=== PATIENT | female | born 1960 | race Caucasian/White ===

== ENCOUNTER 2017-05-30 11:09 | Outpatient (CLI) | payer OTHER ==
[2017-05-30] MEDS: methylPREDNISolone INJ 125 MG/2 ML VIAL (J2930) IV (11:47)
[2017-05-30] MEDS: ACETAMINOPHEN TAB 650MG DOSE (2X325MG) PO (11:47)
[2017-05-30] MEDS: diphenhydrAMINE 25 MG CAP PO (11:47)
[2017-05-30] MEDS: OCRELIZUMAB 300 MG in NS 250 ML IV (12:19)
== END 2017-05-30 16:25 | disposition home or self-care (01) ==
LOC: M INFU 11:09
DX: G35 Multiple sclerosis (principal); Z79.899 Other long term (current) drug therapy
CPT/HCPCS: J2930

== ENCOUNTER → 2020-06-23 | Outpatient (REF) | payer OTHER ==
[~2020-06-23] MED LIST: AMPY10TA PO; DITR1TAB2 PO; GILE1CAP PO; VITA500045 PO; VITA50005 PO
== END ==
LOC: M SMT 12:54
PROVIDERS: ATTEND Urology
DX: R39.81 Functional urinary incontinence (principal)

== ENCOUNTER → 2020-10-24 | Outpatient (CLI) | payer OTHER ==
[~2020-10-24] MED LIST changes: +FUROSEMIDE 20MG/2ML VIAL (J1940) As Ordered ONE
--- NOTE | 2020-10-24 10:27 | REP ---
INDICATION: HYDRONEPHROSIS. COMPARISON: None. TECHNIQUE/RADIOTRACER AND DOSE: Following the intravenous administration of 8.6 mCi technetium 99 M Mag 3, multiple images are obtained of the kidneys for a period of 30 minutes. Lasix was administered intravenously, 20 mg, and further imaging performed. FINDINGS: There is a slightly greater degree of perfusion of the left kidney compared to the right. There is bilateral cortical uptake and excretion with no cortical defect identified. There is mild dilatation of the renal pelvis bilaterally. Split function is 59.6% on the left and 40.4% on the right. Time to peak is normal bilaterally. The T1/2 is 11.4 minutes on the left, upper limits of normal, and 12.7 minutes on the right, slightly elevated. Relatively normal renal function curves are noted. After the administration of Lasix residual activity in the renal pelvis bilaterally clears. There is moderate postvoid residual after voiding. IMPRESSION: Mild bilateral pelviectasis clears after Lasix administration. <Electronically signed by Francesco Hwang > 10/24/20 [id number]
== END ==
LOC: M RAD 08:28
PROVIDERS: ATTEND Specialist
DX: N13.30 Unspecified hydronephrosis (principal); R39.81 Functional urinary incontinence
CPT/HCPCS: 78708; A9562; J1940

== ENCOUNTER → 2020-11-09 | Outpatient (REF) | payer OTHER ==
[~2020-11-09] MED LIST changes: +BIOT1000 PO; +BRIM0.2S13; +CITRTAB18 PO; +CVS5000S2 SL; +D-101000; +D31000TA2 PO; +FOLI400T13 PO; -FUROSEMIDE 20MG/2ML VIAL (J1940) As Ordered ONE; +MAGN250T7 PO
[2020-11-09 14:03] LABS: APPEARANCE, URINE HAZY (CLEAR); BACTERIA, URINE AUTO 1+ (NEGATIVE); BILIRUBIN, URINE AUTO NEGATIVE (NEGATIVE); BLOOD, URINE BLOOD NEGATIVE (NEGATIVE); COLOR, URINE YELLOW (YELLOW); GLUCOSE, URINE (UA) AUTO NEGATIVE (NEGATIVE); KETONE, URINE AUTO NEGATIVE (NEGATIVE); LEUKOCYTE ESTERASE, URINE AUTO NEGATIVE (NEGATIVE); NITRITE, URINE AUTO POSITIVE (NEGATIVE); PROTEIN, URINE AUTO NEGATIVE (NEGATIVE); RBC, URINE AUTO 0 /HPF (0-3); SPECIFIC GRAVITY URINE AUTO 1.012 (1.002-1.035); SQUAMOUS EPITHELIAL CELL UR AU 0 /HPF (0-6); UROBILINOGEN, URINE AUTO 0.2 mg/dL (0.0-2.0); WBC, URINE AUTO 1 /HPF (0-3)
== END ==
LOC: M SMT 12:57
PROVIDERS: ATTEND Urology
DX: Z01.818 Encounter for other preprocedural examination (principal); R39.81 Functional urinary incontinence

== ENCOUNTER → 2020-11-10 | Outpatient (CLI) | payer OTHER | LOC: M LABSMTC 11:34 | PROVIDERS: ATTEND Anesthesiology | DX: Z01.812 Encounter for preprocedural laboratory examination (principal); Z11.52 Encounter for screening for COVID-19 ==

== ENCOUNTER 2020-11-15 09:42 | Day surgery (SDC) | payer OTHER ==
[~2020-11-15] VITALS: Ht 172.7 cm; Wt 141.1 kg
[~2020-11-15 09:42] MED LIST changes: +LIDOCAINE 1% MDV 20ML VIAL SQ PRN; +LR 1,000 ML IV ONE
[2020-11-15] MEDS ORDERED: CIPR100T4 PO (10:30)
[2020-11-15] MEDS ORDERED: dexameTHASONE 4 MG/ML 1ML VIAL (J1100 PER 1MG) As Ordered ONE (12:16)
[2020-11-15] MEDS ORDERED: ROCURONIUM BROMIDE 50 MG/5 ML VIAL As Ordered ONE (12:16)
[2020-11-15] MEDS ORDERED: MIDAZOLAM INJ 2MG/2ML VIAL (J2250 PER 1MG) As Ordered ONE (12:16)
[2020-11-15] MEDS ORDERED: propofoL 200 MG/20 ML VIAL As Ordered ONE (12:16)
[2020-11-15] MEDS ORDERED: fentaNYL 100 MCG/2 ML INJECTION (J3010) As Ordered ONE (12:16)
[2020-11-15] MEDS ORDERED: LIDOCAINE 2% 100MG/5ML SDV (FOR ANES.) As Ordered ONE (12:16)
[2020-11-15] MEDS ORDERED: ONDANSETRON 4MG/2ML VIAL As Ordered ONE (12:17)
[2020-11-15] MEDS ORDERED: CONRAY-60 60% 50ML VIAL (Q9961) As Ordered ONE (13:02)
[2020-11-15] MEDS ORDERED: LIDOCAINE 2% 5ML JELLY UROJET As Ordered ONE (13:18)
[2020-11-15] MEDS ORDERED: LIDOCAINE 1% MDV 50ML VIAL As Ordered ONE (13:18)
[2020-11-15] MEDS: ceFAZolin SOD 1 GM in D5W MINI-BAG PLUS 50 ML IV SCH ×4 (13:20→14:12)
[2020-11-15] MEDS ORDERED: SUGAMMADEX SODIUM 500 MG/5 ML VIAL (BRIDION) As Ordered ONE (13:40)
--- NOTE | 2020-11-15 13:59 | REP ---
INDICATION: POSSIBLE STENT PLACEMENT. COMPARISON: Nuclear scan 10/24/2020. TECHNIQUE: Single C-arm view abdomen and pelvis. FINDINGS: Contrast opacifies the left pelvocaliceal system, visualized portions demonstrate no definite filling defect in there is no overt hydronephrosis. The visualized left ureter demonstrates no filling defect or stricture. IMPRESSION: 9 seconds of fluoroscopy time is utilized. <Electronically signed by Francesco Hwang > 11/15/20 [id number]
--- NOTE | 2020-11-15 14:14 | ROOPDOC ---
[facility] Report Of Operation Report of Operation DATE OF PROCEDURE: 11/15/20 PREPROCEDURE DIAGNOSES: Mild left hydronephrosis, urinary urgency and urge incontinence with a neurogenic bladder secondary to multiple sclerosis, cystic changes in the bladder, and incomplete bladder emptying POSTPROCEDURE DIAGNOSES: Same PROCEDURE PERFORMED: Cystoscopy, left retrograde pyelogram, hydrodistention, multiple bladder biopsies and fulguration, urethral dilation SURGEON: Melissa Corcoran MD ANESTHESIA: General ESTIMATED BLOOD LOSS: Very minimal COMPLICATIONS: None FINDINGS: No abnormality seen on the left retrograde pyelogram. Total bladder capacity under anesthesia greater than 800 cc. Some hyperemia. Multiple small cystic blebs throughout the bladder. SPECIMENS REMOVED: Cystic blebs throughout the bladder PROCEDURE NOTE: The patient is a 60-year-old with multiple sclerosis found to have incomplete bladder emptying with elevated postvoid residuals, urinary urgency and urge incontinence secondary to a neurogenic bladder, and cystic changes throughout the bladder. After discussing all different options, alternatives, risk, benefits it was decided to bring the patient to the operating room for urethral dilation, left retrograde pyelogram, bladder biopsies, fulguration, and a hydrodistention. All options, alternatives, risk, benefits were discussed. DESCRIPTION OF PROCEDURE: The patient was brought into the operating room. Sequential compression devices were in place and preoperative antibiotics have been given. Anesthesia was induced. She was then placed in the lithotomy position and careful attention was paid that her pressure points were well padded and protected. A 21 [place] cystoscope was inserted. The urethra was noted to be open without any evidence of lesions or strictures. Upon entering the bladder both ureteral orifices were seen. Again there were these multiple cystic kind bleb looking even papillary lesions throughout the bladder but they were each about 1 cm in size and very round. First I did a retrograde pyelogram. The ureteral orifice on the left was completely normal and there were no abnormalities seen. Next I distended the bladder just to see whether there would be significant glomerulations or other abnormalities. There was only some hyperemia in her bladder capacity under anesthesia was greater than 800 cc. I left a distended for a very short period of time because I did not want to make emptying any harder. I then did multiple biopsies of the lesions and fulgurated all of these. A urethral dilation was done up to a 34 [place] female sound. Next a slurry of 50 cc of 1% lidocaine liquid mixed with lidocaine jelly was placed in the bladder. The patient was returned to the recovery room in stable condition. MELISSA CORCORAN MD Nov 15, 2020 14:14
[2020-11-15] MEDS ORDERED: METOCLOPRAMIDE INJ 10MG/2ML VIAL (J2765 PER 1) IV PRN (14:25)
[2020-11-15] MEDS ORDERED: fentaNYL 100 MCG/2 ML INJECTION (J3010) IV PRN (14:25)
[2020-11-15] MEDS ORDERED: PERCOCET 5MG/325MG TAB PO PRN (14:25)
[2020-11-15] MEDS ORDERED: ONDANSETRON 4MG/2ML VIAL IV PRN (14:25)
[2020-11-15] MEDS ORDERED: LR 1,000 ML IV SCH (14:25)
[2020-11-15 15:53] VITALS: BP 136/72
== END 2020-11-15 16:00 | disposition home or self-care (01) ==
LOC: M SDC 09:42
PROVIDERS: ATTEND Specialist
DX: N30.20 Other chronic cystitis without hematuria (principal); N13.39 Other hydronephrosis; R39.81 Functional urinary incontinence; R39.15 Urgency of urination; G35 Multiple sclerosis; Z79.899 Other long term (current) drug therapy
CPT/HCPCS: 52204; 52260; 74420; 88305; J0690; J1100; J2250; J2405; J3010; Q9961

== ENCOUNTER → 2021-06-29 | Outpatient (REF) | payer OTHER ==
[~2021-06-29] MED LIST changes: -BRIM0.2S13; +BRIM0.2S13 OU; +CIPR100T4 PO; +D3-5CAP PO; -D31000TA2 PO; -LIDOCAINE 1% MDV 20ML VIAL SQ PRN; -LR 1,000 ML IV ONE; +VITA100093 PO
[2021-06-29 13:45] LABS: BACTERIA, URINE AUTO 3+ (NEGATIVE); MUCUS, URINE SMALL (NEGATIVE); RBC, URINE AUTO 34 /HPF (0-3); SQUAMOUS EPITHELIAL CELL UR AU 0 /HPF (0-6); WBC, URINE AUTO 3 /HPF (0-3)
== END ==
LOC: M SMT 13:16
PROVIDERS: ATTEND Specialist
DX: Z01.818 Encounter for other preprocedural examination (principal)

== ENCOUNTER 2021-07-05 11:41 | Day surgery (SDC) | payer OTHER ==
[~2021-07-05] VITALS: Ht 172.7 cm; Wt 142.4 kg
[~2021-07-05 11:41] MED LIST changes: +KETOROLAC 60MG 2ML VIAL As Ordered ONE; +LIDOCAINE 2% 100MG/5ML SDV (FOR ANES.) As Ordered ONE; +LR 1,000 ML IV ONE; +MIDAZOLAM INJ 2MG/2ML VIAL (J2250 PER 1MG) As Ordered ONE; +ONDANSETRON 4MG/2ML VIAL As Ordered ONE; +ceFAZolin SOD 1 GM in D5W MINI-BAG PLUS 50 ML IV ONE; +ceFAZolin SOD 2 GM in IV 1 EA IV ONE; +dexameTHASONE 4 MG/ML 1ML VIAL (J1100 PER 1MG) As Ordered ONE; +fentaNYL 100 MCG/2 ML INJECTION As Ordered ONE; +propofoL 500 MG/50 ML VIAL As Ordered ONE
[2021-07-05] MEDS ORDERED: LIDOCAINE 1% SDV 30ML VIAL As Ordered ONE ×2 (12:57→14:22)
[2021-07-05] MEDS ORDERED: SODIUM BICARBONATE 8.4% INJ 50MEQ 50 ML VIAL As Ordered ONE (12:57)
[2021-07-05] MEDS ORDERED: TOBRAMYCIN 80MG/2ML VIAL As Ordered ONE ×2 (15:04→17:41)
[2021-07-05] MEDS ORDERED: ONDANSETRON 4MG/2ML VIAL As Ordered ONE (17:52)
[2021-07-05] MEDS ORDERED: dexameTHASONE 4 MG/ML 1ML VIAL (J1100 PER 1MG) As Ordered ONE (17:52)
[2021-07-05] MEDS ORDERED: SUGAMMADEX SODIUM 500 MG/5 ML VIAL (BRIDION) As Ordered ONE (17:52)
[2021-07-05] MEDS ORDERED: ROCURONIUM BROMIDE 50 MG/5 ML VIAL As Ordered ONE (17:52)
[2021-07-05] MEDS ORDERED: propofoL 200 MG/20 ML VIAL As Ordered ONE (17:52)
[2021-07-05] MEDS ORDERED: fentaNYL 100 MCG/2 ML INJECTION As Ordered ONE (17:53)
[2021-07-05] MEDS ORDERED: MIDAZOLAM INJ 2MG/2ML VIAL (J2250 PER 1MG) As Ordered ONE (17:53)
[2021-07-05] MEDS ORDERED: ePHEDrine SULFATE 25 MG/5 ML(5MG/ML) SYRINGE As Ordered ONE (18:54)
[2021-07-05] MEDS ORDERED: ONDANSETRON 4MG/2ML VIAL IV PRN (19:40)
[2021-07-05] MEDS ORDERED: fentaNYL 100 MCG/2 ML INJECTION IV PRN (19:40)
[2021-07-05] MEDS ORDERED: LR 1,000 ML IV SCH (19:40)
[2021-07-05 20:05] VITALS: BP 134/67
== END 2021-07-05 20:40 | disposition home or self-care (01) ==
LOC: M SDC 11:41
PROVIDERS: ATTEND Specialist
DX: T83.12 Displacement of other urinary devices and implants (principal); Y73.2 Prosthetic and other implants, materials and accessory gastroenterology and urology devices associated with adverse incidents; N39.498 Other specified urinary incontinence; N32.81 Overactive bladder; G35 Multiple sclerosis; Z99.3 Dependence on wheelchair; Z87.81 Personal history of (healed) traumatic fracture; M48.00 Spinal stenosis, site unspecified; M54.9 Dorsalgia, unspecified; G62.9 Polyneuropathy, unspecified; N30.90 Cystitis, unspecified without hematuria; R06.83 Snoring; Z79.899 Other long term (current) drug therapy
CPT/HCPCS: 64585; 76000; 93005; C1897; J0690; J1100; J1885; J2250; J2405; J3010; J3260

== ENCOUNTER 2021-07-16 06:47 | Day surgery (SDC) | payer OTHER ==
[~2021-07-16] VITALS: Ht 172.7 cm; Wt 141.1 kg
[~2021-07-16 06:47] MED LIST changes: -KETOROLAC 60MG 2ML VIAL As Ordered ONE; -LIDOCAINE 2% 100MG/5ML SDV (FOR ANES.) As Ordered ONE; -MIDAZOLAM INJ 2MG/2ML VIAL (J2250 PER 1MG) As Ordered ONE; -ONDANSETRON 4MG/2ML VIAL As Ordered ONE; -dexameTHASONE 4 MG/ML 1ML VIAL (J1100 PER 1MG) As Ordered ONE; -fentaNYL 100 MCG/2 ML INJECTION As Ordered ONE; -propofoL 500 MG/50 ML VIAL As Ordered ONE
[2021-07-16] MEDS ORDERED: MIDAZOLAM INJ 2MG/2ML VIAL (J2250 PER 1MG) As Ordered ONE (08:10)
[2021-07-16] MEDS ORDERED: LIDOCAINE 2% 100MG/5ML SDV (FOR ANES.) As Ordered ONE (08:10)
[2021-07-16] MEDS ORDERED: propofoL 200 MG/20 ML VIAL As Ordered ONE (08:10)
[2021-07-16] MEDS ORDERED: fentaNYL 100 MCG/2 ML INJECTION As Ordered ONE (08:10)
[2021-07-16] MEDS ORDERED: LIDOCAINE 1% SDV 30ML VIAL As Ordered ONE (09:03)
[2021-07-16] MEDS ORDERED: HYDR-3713 PO (09:45)
[2021-07-16] MEDS ORDERED: CEPH500C PO (09:45)
[2021-07-16 10:45] VITALS: BP 136/94
== END 2021-07-16 11:05 | disposition home or self-care (01) ==
LOC: M SDC 06:47
PROVIDERS: ATTEND Urology
DX: N32.81 Overactive bladder (principal); N39.498 Other specified urinary incontinence; G35 Multiple sclerosis; Z99.3 Dependence on wheelchair; G62.9 Polyneuropathy, unspecified; M54.9 Dorsalgia, unspecified; R06.83 Snoring; Z79.899 Other long term (current) drug therapy; Z91.018 Allergy to other foods; Z87.81 Personal history of (healed) traumatic fracture
CPT/HCPCS: 64590; C1778; J0690; J2250; J3010